=== PATIENT | male | born 1945 | race African-American/Black ===

== ENCOUNTER 2025-01-12 13:07 | Inpatient (IN) | payer MEDICARE, MEDICAID ==
[~2025-01-12] VITALS: Ht 175.3 cm; Wt 90.5 kg
[2025-01-12] MEDS: SODIUM CHLORIDE 0.9% (SEPSIS BOLUS) IV ONE (13:43)
[2025-01-12] MEDS: LEVOFLOXACIN 750MG PREMIX 150 ML IV ONE (13:58)
[2025-01-12 14:07] LABS: DIFFERENTIAL COMMENT 1; HEMATOCRIT. 34.4 % (42.0-52.0); HEMOGLOBIN. 11.1 g/dL (14.0-18.0); MEAN CORPUSCULAR HEMOGLOBIN 26.4 pg (28.0-32.0); MEAN CORPUSCULAR HGB CONC 32.3 g/dL (31.0-37.0); MEAN CORPUSCULAR VOLUME 81.9 fL (80.0-94.0); MEAN PLATELET VOLUME 8.5 fl (7.4-10.4); PLATELET 234 x1000/uL (130-400); RED CELL DISTRIBUTION WIDTH 18.1 % (11.6-14.6); WHITE BLOOD COUNT 5.8 x1000/uL (4.5-11.0)
[2025-01-12 14:19] LABS: CARBON DIOXIDE 24 mEq/L (21-32); CHLORIDE 108 mEq/L (98-107); SODIUM 140 mEq/L (136-145)
[2025-01-12 14:20] LABS: CALCIUM 8.6 mg/dL (8.7-10.4)
[2025-01-12 14:24] LABS: CREATININE 0.8 mg/dL (0.6-1.3)
[2025-01-12 14:25] LABS: GLUCOSE 103 mg/dL (70-105); UREA NITROGEN BLOOD 16 mg/dL (9-23)
[2025-01-12 14:26] LABS: PROTHROMBIN TIME 10.7 sec (9.6-11.0)
[2025-01-12 14:27] LABS: ALANINE AMINOTRANSFERASE 8 IU/L (10-49); ALBUMIN 4.2 g/dL (3.2-4.8); ASPARTATE AMINOTRANSFERASE 12 IU/L (<34); BILIRUBIN DIRECT 0.2 mg/dL (<=3.0); BILIRUBIN TOTAL 0.7 mg/dL (0.1-1.0); PROTEIN TOTAL 6.3 g/dL (6.0-8.3)
[2025-01-12 14:44] LABS: TROPONIN I HIGH SENSITIVITY 54 ng/L (3.0-53)
[2025-01-12 14:57] LABS: ANISOCYTOSIS 2+; PLATELET ESTIMATE NORMAL
[2025-01-12] MEDS ORDERED: ACETAMINOPHEN 650MG/20.3ML UDC GT PRN (15:00)
[2025-01-12] MEDS ORDERED: CLONIDINE 0.1MG TABLET PO PRN (15:00)
[2025-01-12] MEDS ORDERED: ONDANSETRON HCL 4MG/2ML INJ IV PRN (15:00)
[2025-01-12] MEDS: DEXT 5%/0.45% NACL 1000ML 1,000 ML IV SCH (15:22)
[2025-01-12 15:56] VITALS: PULSE 108; RESP 22; O2SAT 100
[2025-01-12] MEDS: IPRATROPIUM/ALBUTEROL 0.5-3(2.5)MG/3ML NEB NEB SCH (15:56)
[2025-01-12] MEDS: ENOXAPARIN 40MG/0.4ML SYR SUBCUT SCH (16:54)
[2025-01-12 17:00] VITALS: BP 147/112; PULSE 92; RESP 20; TEMP 36.2; TEMP 36.3; O2SAT 100
[2025-01-12] MEDS ORDERED: DEXTROSE 50% WATER 50ML SYRINGE IV PRN (17:00)
[2025-01-12] MEDS: INSULIN LISPRO 100 UNITS/ML SUBCUT SCH (17:26)
[2025-01-12] MEDS: BLOOD SUGAR DIAGNOSTIC STRIP TEST SCH (17:27)
[2025-01-12] MEDS ORDERED: ASCO500C14 MT (18:56)
[2025-01-12] MEDS ORDERED: ATOR10TA69 MT (18:56)
[2025-01-12] MEDS ORDERED: DOCU-138 PO (18:56)
[2025-01-12] MEDS ORDERED: BENA-8 MT (18:56)
[2025-01-12] MEDS ORDERED: MULT-647 PO (19:10)
[2025-01-12] MEDS ORDERED: LACT10SO81 PO (19:10)
[2025-01-12] MEDS ORDERED: THEOL PO (19:10)
[2025-01-12] MEDS ORDERED: IPRA3AMP31 IH (19:10)
[2025-01-12] MEDS ORDERED: LEVO25TA7 MT (19:10)
[2025-01-12] MEDS ORDERED: FURO-151 MT (19:10)
[2025-01-12] MEDS ORDERED: [UNRECOGNIZED DRUG - CODE] MT (19:10)
[2025-01-12] MEDS ORDERED: POTA8CAP20 MT (19:10)
[2025-01-12] MEDS ORDERED: PANT40SU MT (19:10)
[2025-01-12 20:00] VITALS: BP 107/86; PULSE 81; RESP 19; TEMP 35.9; O2SAT 98
[2025-01-12 20:54] LABS: CLARITY URINE CLEAR (CLEAR); COLOR URINE YELLOW (YELLOW); GLUCOSE URINE NEGATIVE (NEGATIVE); KETONES URINE NEGATIVE (NEGATIVE); LEUKOCYTE ESTERASE URINE NEGATIVE (NEGATIVE); NITRITE URINE NEGATIVE (NEGATIVE); OCCULT BLOOD URINE NEGATIVE (NEGATIVE); PROTEIN URINE TRACE (NEGATIVE); SPECIFIC GRAVITY URINE 1.013 (1.005-1.030)
[2025-01-12 21:05] VITALS: PULSE 102; RESP 18; O2SAT 99
[2025-01-12 21:46] LABS: BACTERIA URINE TRACE
[2025-01-12 21:47] LABS: RBC URINE 0-2 /hpf (0-2); SQUAMOUS EPITHELIAL CELL URINE FEW /lpf (RARE/1+)
[2025-01-12 21:48] LABS: WBC URINE 0-2 /hpf (0-2)
[2025-01-13] VITALS (9 sets, daily range): BP systolic 104–153; BP diastolic 79–111; PULSE 73–96; RESP 16–20; TEMP 36.1–36.7; O2SAT 97–100
[2025-01-13 00:58] LABS: TROPONIN I HIGH SENSITIVITY 64 ng/L (3.0-53)
[2025-01-13 06:09] LABS: BASOPHILS % 0.2 % (0.0-2.0); HEMATOCRIT. 36.5 % (42.0-52.0); HEMOGLOBIN. 11.7 g/dL (14.0-18.0); LYMPHOCYTES % 12.3 % (20.0-50.0); MEAN CORPUSCULAR HEMOGLOBIN 26.4 pg (28.0-32.0); MEAN CORPUSCULAR HGB CONC 32.1 g/dL (31.0-37.0); MEAN CORPUSCULAR VOLUME 82.2 fL (80.0-94.0); MEAN PLATELET VOLUME 8.8 fl (7.4-10.4); MONOCYTES % 11.3 % (2.0-8.0); NEUTROPHILS % 76.2 % (40.0-76.0); PLATELET 216 x1000/uL (130-400); RED BLOOD CELL COUNT 4.44 mill/uL (4.7-6.1); RED CELL DISTRIBUTION WIDTH 18.4 % (11.6-14.6)
[2025-01-13 06:48] LABS: CARBON DIOXIDE 25 mEq/L (21-32); CHLORIDE 105 mEq/L (98-107); POTASSIUM 3.5 mEq/L (3.5-5.1); SODIUM 143 mEq/L (136-145)
[2025-01-13 06:50] LABS: CALCIUM 9.6 mg/dL (8.7-10.4)
[2025-01-13 06:54] LABS: CREATININE 0.9 mg/dL (0.6-1.3); GLUCOSE 143 mg/dL (70-105); UREA NITROGEN BLOOD 17 mg/dL (9-23)
[2025-01-13 06:59] LABS: THYROID STIMULATING HORMONE 0.53 uIU/mL (0.55-4.78)
[2025-01-13 08:48] LABS: TROPONIN I HIGH SENSITIVITY 65 ng/L (3.0-53)
[2025-01-13] MEDS: CEFTRIAXONE 1GM/50ML 50 ML IV SCH (13:34)
[2025-01-13] MEDS: METHYLPREDNISOLONE SOD SUCC 40MG/ML (ACT-O-VIAL) IV SCH (13:34)
[2025-01-13] MEDS ORDERED: HYDRALAZINE 20MG/ML VIAL IV PRN (14:00)
[2025-01-13] MEDS ORDERED: CEFTRIAXONE 1GM/50ML 50 ML IV SCH (14:00)
[2025-01-14] VITALS (11 sets, daily range): BP systolic 121–130; BP diastolic 80–103; PULSE 68–108; RESP 18–20; TEMP 35.9–37.1; O2SAT 95–100
[2025-01-14 07:28] LABS: BASOPHILS % 0.1 % (0.0-2.0); HEMOGLOBIN. 11.5 g/dL (14.0-18.0); LYMPHOCYTES % 9.9 % (20.0-50.0); MEAN CORPUSCULAR HEMOGLOBIN 26.3 pg (28.0-32.0); MEAN CORPUSCULAR VOLUME 82.1 fL (80.0-94.0); MEAN PLATELET VOLUME 8.7 fl (7.4-10.4); MONOCYTES % 6.4 % (2.0-8.0); NEUTROPHILS % 83.6 % (40.0-76.0); PLATELET 213 x1000/uL (130-400); RED BLOOD CELL COUNT 4.38 mill/uL (4.7-6.1); RED CELL DISTRIBUTION WIDTH 18.6 % (11.6-14.6); WHITE BLOOD COUNT 4.7 x1000/uL (4.5-11.0)
[2025-01-14 08:06] LABS: CARBON DIOXIDE 26 mEq/L (21-32); CHLORIDE 105 mEq/L (98-107); POTASSIUM 4.2 mEq/L (3.5-5.1); SODIUM 142 mEq/L (136-145)
[2025-01-14 08:08] LABS: CALCIUM 9.4 mg/dL (8.7-10.4)
[2025-01-14 08:12] LABS: GLUCOSE 185 mg/dL (70-105)
[2025-01-14 08:13] LABS: UREA NITROGEN BLOOD 22 mg/dL (9-23)
[2025-01-14 08:15] LABS: PHOSPHORUS 3.7 mg/dL (2.5-4.9)
[2025-01-14] MEDS: DILTIAZEM HCL 30MG TABLET PO SCH (10:10)
[2025-01-14 12:57] LABS: TROPONIN I HIGH SENSITIVITY 65 ng/L (3.0-53)
[2025-01-14] MEDS: CEFTRIAXONE 1GM/50ML 50 ML IV SCH (13:24)
[2025-01-14 17:56] LABS: BG BASE EXCESS 2.2 mmol/L (-2.0-3.0); BG CARBOXYHEMOGLOBIN 0.9 % (0.5-1.5); BG DEOXYHEMOGLOBIN 0.9 % (0.0-5.0); BG FRACTION INSPIRED OXYGEN 32; BG HCO3 ACT 25.8 mmol/L (21.0-28.0); BG METHEMOGLOBIN 0.2 % (0.5-1.5); BG OXYGEN SATURATION 99.1 % (94.0-98.0); BG PCO2 36.9 mmHg (35.0-48.0); BG PH 7.463 (7.350-7.450); BG PO2 133.4 mmHg (83.0-108.0); BG SAMPLE SITE RIGHT BRACHIAL; BG TOTAL HEMOGLOBIN 12.8 g/dL (13.5-17.5); BG VENT MODE NASAL CANNULA
[2025-01-14] MEDS: METHYLPREDNISOLONE SOD SUCC 40MG/ML (ACT-O-VIAL) IV SCH (22:20)
[2025-01-15] VITALS (9 sets, daily range): BP systolic 117–137; BP diastolic 82–101; PULSE 61–116; RESP 18–21; TEMP 36–36.6; O2SAT 94–98
[2025-01-15 07:10] LABS: HEMATOCRIT. 36.5 % (42.0-52.0); HEMOGLOBIN. 11.9 g/dL (14.0-18.0); MEAN CORPUSCULAR HEMOGLOBIN 26.6 pg (28.0-32.0); MEAN CORPUSCULAR HGB CONC 32.7 g/dL (31.0-37.0); MEAN CORPUSCULAR VOLUME 81.2 fL (80.0-94.0); MEAN PLATELET VOLUME 8.6 fl (7.4-10.4); PLATELET 211 x1000/uL (130-400); RED BLOOD CELL COUNT 4.49 mill/uL (4.7-6.1); RED CELL DISTRIBUTION WIDTH 18.6 % (11.6-14.6); WHITE BLOOD COUNT 9.2 x1000/uL (4.5-11.0)
[2025-01-15 07:14] LABS: DIFFERENTIAL COMMENT 1
[2025-01-15 07:16] LABS: CHLORIDE 105 mEq/L (98-107); POTASSIUM 4.4 mEq/L (3.5-5.1); SODIUM 143 mEq/L (136-145)
[2025-01-15 07:17] LABS: CALCIUM 9.4 mg/dL (8.7-10.4); CARBON DIOXIDE 28 mEq/L (21-32)
[2025-01-15 07:22] LABS: CREATININE 0.9 mg/dL (0.6-1.3); GLUCOSE 188 mg/dL (70-105); UREA NITROGEN BLOOD 29 mg/dL (9-23)
[2025-01-15] MEDS: AZITHROMYCIN 500 MG TABLET PO SCH (10:00)
[2025-01-15] MEDS: DILTIAZEM HCL 60MG TABLET PO SCH (14:08)
[2025-01-15 18:09] LABS: PLATELET ESTIMATE NORMAL
[2025-01-16] VITALS (8 sets, daily range): BP systolic 118–127; BP diastolic 74–97; PULSE 40–96; RESP 14–20; TEMP 36.1–36.7; O2SAT 98–100
[2025-01-16 09:47] LABS: CHLORIDE 108 mEq/L (98-107); POTASSIUM 4.1 mEq/L (3.5-5.1); SODIUM 146 mEq/L (136-145)
[2025-01-16 09:49] LABS: CARBON DIOXIDE 30 mEq/L (21-32); HEMATOCRIT. 37.3 % (42.0-52.0); HEMOGLOBIN. 11.9 g/dL (14.0-18.0); MEAN CORPUSCULAR HEMOGLOBIN 26.3 pg (28.0-32.0); MEAN CORPUSCULAR HGB CONC 31.9 g/dL (31.0-37.0); MEAN CORPUSCULAR VOLUME 82.4 fL (80.0-94.0); MEAN PLATELET VOLUME 8.8 fl (7.4-10.4); PLATELET 192 x1000/uL (130-400); RED BLOOD CELL COUNT 4.53 mill/uL (4.7-6.1); RED CELL DISTRIBUTION WIDTH 18.7 % (11.6-14.6); WHITE BLOOD COUNT 10.9 x1000/uL (4.5-11.0)
[2025-01-16 09:50] LABS: CALCIUM 9.4 mg/dL (8.7-10.4)
[2025-01-16 09:54] LABS: CREATININE 0.9 mg/dL (0.6-1.3)
[2025-01-16 09:55] LABS: GLUCOSE 135 mg/dL (70-105); UREA NITROGEN BLOOD 36 mg/dL (9-23)
[2025-01-16 09:58] LABS: THYROID STIMULATING HORMONE 0.39 uIU/mL (0.55-4.78)
[2025-01-16 10:04] LABS: DIFFERENTIAL COMMENT 1
[2025-01-16 12:50] LABS: ANISOCYTOSIS 2+; HYPOCHROMASIA 1+; PLATELET ESTIMATE NORMAL
== END 2025-01-16 19:06 | DRG 190 ==
LOC: ER 13:07 → EDBEDREQ 13:44 → 7WST 15:07 → EDBEDREQ 15:10
PROVIDERS: ADMIT Internal Medicine Nephrology; ATTEND Internal Medicine Nephrology
DX: J44.0 Chronic obstructive pulmonary disease with (acute) lower respiratory infection (principal); J18.9 Pneumonia, unspecified organism; I13.0 Hypertensive heart and chronic kidney disease with heart failure and stage 1 through stage 4 chronic kidney disease, or unspecified chronic kidney disease; I42.9 Cardiomyopathy, unspecified; I47.20 Ventricular tachycardia, unspecified; I69.951 Hemiplegia and hemiparesis following unspecified cerebrovascular disease affecting right dominant side; G93.49 Other encephalopathy; F03.93 Unspecified dementia, unspecified severity, with mood disturbance; J44.1 Chronic obstructive pulmonary disease with (acute) exacerbation; I48.91 Unspecified atrial fibrillation; E87.5 Hyperkalemia; I50.9 Heart failure, unspecified; N18.9 Chronic kidney disease, unspecified; E11.22 Type 2 diabetes mellitus with diabetic chronic kidney disease; D64.9 Anemia, unspecified; F20.9 Schizophrenia, unspecified; E05.90 Thyrotoxicosis, unspecified without thyrotoxic crisis or storm; E78.00 Pure hypercholesterolemia, unspecified; F31.9 Bipolar disorder, unspecified; R13.10 Dysphagia, unspecified; Z79.899 Other long term (current) drug therapy; K94.29 Other complications of gastrostomy
CPT/HCPCS: 36415; 36600; 71045; 80048; 80076; 81003; 82375; 82805; 82962; 83036; 83605; 83735; 83880; 84100; 84145; 84439; 84443; 84481; 84484; 85025; 93005; 93306; 93970; 94070; 94640; 94664; 94760; 98960; 99291; A4606; J0696; J1650; J1815; J1956; J2919; J7030